=== PATIENT | female | born 1990 | race Caucasian/White ===

== ENCOUNTER → 2017-02-18 | Outpatient (CLI) | payer OTHER ==
[~2017-02-18] MED LIST: ADVIL200 MG PO; ALBUTEROL0.09 MG/A1 IH; ANTIVERT 25MG25 MG PO; ATIVAN 0.50.5 MG/TAB PO; BUSPAR10 MG PO; BUTAL; CIPRO 250MG TA250 MG PO; DESYREL 50MG50 MG PO; EFFEXOR XR75 MG/CAP PO; IBUPROFEN600 MG PO; Iron; LEXAPRO20 MG PO; MOTRIN 600600 MG/TAB PO; NO HOME MEDICATIONS; NORCO 325 MG-51 TAB PO; PENICILLIN V250 MG PO; PERIACTIN 4MG TA4 MG PO; PHENERGAN 25 TA25 MG PO; PRENATAL VITAMI1 TA5 PO; PROVENTIL0.09 MG/A1 IH; SUDAFED 12HR120 MG PO; VICODIN 5/5001 UDTAB PO; VISTARIL 2525 MG/CAP PO; VYVANSE40 MG PO; ZOFRAN 4MG T4 MG/TAB PO; ZYMAR OPHTH SOL5 ML OP
== END ==
LOC: COL.RAD 09:16
DX: R51 Headache (principal)
CPT/HCPCS: Q9967

== ENCOUNTER 2017-02-19 08:35 | Outpatient (CLI) | payer OTHER ==
[~2017-02-19] VITALS: Ht 162.6 cm; Wt 120.3 kg
[2017-02-19] VITALS (10 sets, daily range): BP systolic 96–146; BP diastolic 58–72; PULSE 63–83
[2017-02-19 15:10] LABS: CSF APPEARANCE CLEAR; CSF COLOR COLORLESS
[2017-02-19 18:22] LABS: CEREBROSPINAL TUBE #4
[2017-02-24 08:45] LABS: CSF,IGG 2.4 mg/dL (<=8.1)
[2017-02-24 09:21] LABS: IGG/ALBUMIN SERUM 0.22 (<=0.40)
[2017-02-24 09:34] LABS: ALBUMIN CSF 15.9 mg/dL (<=27.0); CSF IGG/ALBUMIN 0.15 (<=0.21); CSF SYNTHESIS RATE 2.54 mg/24 h (<=12); CSF-IGG INDEX 0.68 (<=0.85)
== END 2017-02-19 14:54 | disposition home or self-care (01) ==
LOC: COL.RAD 08:35
PROVIDERS: Psychiatry & Neurology Neurology
DX: R51 Headache (principal)

== ENCOUNTER 2017-03-13 23:31 | Emergency (ER) | payer OTHER ==
[~2017-03-13] VITALS: Ht 162.6 cm; Wt 118.6 kg
[2017-03-13 23:35] VITALS: TEMP 98.7
[2017-03-14] MEDS ORDERED: ANTIVERT 25MG25 MG PO (00:51)
[2017-03-14 01:02] VITALS: BP 131/74; PULSE 68
== END 2017-03-14 01:02 | disposition home or self-care (01) ==
LOC: COL.ER 23:31
DX: R42 Dizziness and giddiness (principal); R11.0 Nausea; F41.9 Anxiety disorder, unspecified; F32.9 Major depressive disorder, single episode, unspecified; F90.9 Attention-deficit hyperactivity disorder, unspecified type; R25.3 Fasciculation

== ENCOUNTER 2017-03-23 13:38 | Emergency (ER) | payer OTHER ==
[~2017-03-23] VITALS: Ht 162.6 cm; Wt 113.6 kg
[2017-03-23 13:41] VITALS: TEMP 99.2
[2017-03-23 14:53] LABS: ALBUMIN 4.3 gm/dL (3.5-5.0); BILIRUBIN,TOTAL 0.7 mg/dL (0.0-1.0); CALCIUM 9.2 mg/dL (8.4-10.2); CREATININE, serum 0.86 mg/dL (0.52-1.25); TOTAL PROTEIN 7.4 gm/dL (6.4-8.2)
[2017-03-23 15:09] VITALS: BP 117/87; PULSE 85
== END 2017-03-23 15:13 | disposition home or self-care (01) ==
LOC: COL.ER 13:38
PROVIDERS: Emergency Medicine
DX: T67.6XXA Heat fatigue, transient, initial encounter (principal); R51 Headache; R34 Anuria and oliguria; R11.0 Nausea; F41.9 Anxiety disorder, unspecified; F90.9 Attention-deficit hyperactivity disorder, unspecified type
CPT/HCPCS: J1885; J2405; J7030

== ENCOUNTER 2017-05-02 15:13 | Emergency (ER) | payer OTHER ==
[~2017-05-02] VITALS: Ht 162.6 cm; Wt 119.5 kg
[2017-05-02 15:14] VITALS: BP 128/78; PULSE 89; TEMP 98.1
== END 2017-05-02 15:46 | disposition home or self-care (01) ==
LOC: COL.ER 15:13
DX: S80.861A Insect bite (nonvenomous), right lower leg, initial encounter (principal); W57.XXXA Bitten or stung by nonvenomous insect and other nonvenomous arthropods, initial encounter; F90.9 Attention-deficit hyperactivity disorder, unspecified type; F41.9 Anxiety disorder, unspecified; F32.9 Major depressive disorder, single episode, unspecified

== ENCOUNTER 2017-10-14 16:07 | Emergency (ER) | payer SELFPAY ==
[~2017-10-14] VITALS: Ht 160 cm; Wt 118.2 kg
[2017-10-14 16:15] VITALS: TEMP 98.3
[2017-10-14 16:48] LABS: ARTERIAL BLD GAS O2 SATURATION 99.1 % (92-100); ARTERIAL BLD GAS TCO2 CT 22.6; ARTERIAL BLOOD GAS BASE EXCESS -1.5 (-2-2); ARTERIAL BLOOD GAS HCO3 21.6 meq/L (22-26); ARTERIAL BLOOD GAS pH 7.45 (7.35-7.45); OXYHEMOGLOBIN 96.6 %
[2017-10-14 16:49] LABS: ALLEN TEST YES; ALLENS TEST RESULT PASS; ARTERIAL BLOOD GAS PO2 331.7 mmHg (80-100); ATS? YES
[2017-10-14 17:04] LABS: BASO # 0.1 (0.0-0.2); BASO % 0.5 % (0.0-2.0); EOS # 0.3 (0.0-0.7); EOS % 2.5 % (0-4.0); GRAN # 8.2 (1.4-6.5); GRAN % 63.2 % (42.2-75.2); HEMATOCRIT 40.1 % (37.0-47.0); HEMOGLOBIN 13.4 g/dl (12.5-16.0); LYMPH # 3.3 (1.2-3.4); LYMPH % 25.1 % (20.0-51.0); MEAN CELL VOLUME 92 fl (80.0-100.0); MEAN CORPUSCULAR HEMOGLOBIN 31 pg (27.0-31.0); MEAN CORPUSCULAR HGB CONC 33 g/dl (33.0-37.0); MEAN PLATELET VOLUME 10.3 fl (7.4-10.4); MONO # 1.1 (0.1-0.6); MONO % 8.3 % (1.7-9.3); PLATELET COUNT 216 K/mm3 (130-400); RED BLOOD COUNT 4.34 M/mm3 (4.10-5.30)
[2017-10-14 17:14] LABS: ADJUSTED CALCIUM 8.8 mg/dL (8.4-10.2); BILIRUBIN,TOTAL 0.3 mg/dL (0.0-1.0); CALCIUM 8.8 mg/dL (8.4-10.2); CREATININE, serum 0.88 mg/dL (0.52-1.25); POTASSIUM 4.2 mmol/L (3.4-5.0); TOTAL PROTEIN 6.8 gm/dL (6.4-8.2)
[2017-10-14 18:30] VITALS: BP 116/82; PULSE 70
== END 2017-10-14 18:30 | disposition home or self-care (01) ==
LOC: COL.ER 16:07
PROVIDERS: Emergency Medicine
DX: Z77.118 Contact with and (suspected) exposure to other environmental pollution (principal); F41.9 Anxiety disorder, unspecified; F32.9 Major depressive disorder, single episode, unspecified; J45.909 Unspecified asthma, uncomplicated; F17.210 Nicotine dependence, cigarettes, uncomplicated

== ENCOUNTER 2018-06-01 15:23 | Emergency (ER) | payer SELFPAY ==
[~2018-06-01] VITALS: Ht 162.6 cm; Wt 122.7 kg
[2018-06-01 15:25] VITALS: TEMP 98.7
[2018-06-01 16:07] LABS: COLLECTION METHOD CLEAN CATCH
[2018-06-01 16:36] LABS: MUCOUS Present /lpf; PH 5 (5-8); URINE APPEARANCE Clear; URINE BACTERIA None Seen /hpf; URINE BILIRUBIN Negative (NEGATIVE); URINE BLOOD Negative (NEGATIVE); URINE COLOR Yellow; URINE GLUCOSE Negative (NEGATIVE); URINE KETONE Negative (NEGATIVE); URINE LEUKOCYTE ESTERASE Negative (NEGATIVE); URINE NITRATE Negative (NEGATIVE); URINE PROTEIN(semi-quant) Negative (NEGATIVE); URINE RBC 0-2 /hpf; URINE UROBILINOGEN Negative (NEGATIVE)
[2018-06-01 16:47] LABS: BASO # 0.1 (0.0-0.2); BASO % 0.6 % (0.0-2.0); EOS # 0.4 (0.0-0.7); EOS % 2.6 % (0-4.0); GRAN # 9.4 (1.4-6.5); GRAN % 67.6 % (42.2-75.2); HEMATOCRIT 41.1 % (37.0-47.0); HEMOGLOBIN 13.8 g/dl (12.5-16.0); LYMPH # 3.1 (1.2-3.4); LYMPH % 22.1 % (20.0-51.0); MEAN CELL VOLUME 91 fl (80.0-100.0); MEAN CORPUSCULAR HEMOGLOBIN 31 pg (27.0-31.0); MEAN CORPUSCULAR HGB CONC 34 g/dl (33.0-37.0); MEAN PLATELET VOLUME 9.8 fl (7.4-10.4); MONO % 6.9 % (1.7-9.3); PLATELET COUNT 273 K/mm3 (130-400); RED BLOOD COUNT 4.53 M/mm3 (4.10-5.30)
[2018-06-01 16:54] LABS: ALANINE AMINOTRANSFERASE 27 U/L (9-52); ALKALINE PHOSPHATASE 90 U/L (50-136); ANION GAP 8 mmol/L (7-16); AST,SGOT 20 U/L (15-37); BILIRUBIN,TOTAL 0.3 mg/dL (0.0-1.0); BLOOD UREA NITROGEN 14 mg/dL (7-17); CALCIUM 8.9 mg/dL (8.4-10.2); CARBON DIOXIDE 26 mmol/L (22-30); CHLORIDE 104 mmol/L (98-107); CREATININE, serum 0.93 mg/dL (0.52-1.25); GLUCOSE 92 mg/dL (74-106); POTASSIUM 3.8 mmol/L (3.4-5.0); SODIUM 138 mmol/L (137-145)
[2018-06-01 17:10] LABS: HCG,QUANTITATIVE < 2 mIU/mL (0-5)
[2018-06-01 18:14] VITALS: BP 136/87; PULSE 70
== END 2018-06-01 18:12 | disposition home or self-care (01) ==
LOC: COL.ER 15:23
PROVIDERS: Emergency Medicine
DX: R11.0 Nausea (principal); R42 Dizziness and giddiness

== ENCOUNTER 2018-07-12 03:00 | Emergency (ER) | payer SELFPAY ==
[~2018-07-12] VITALS: Ht 160 cm; Wt 121.8 kg
[2018-07-12 03:02] VITALS: BP 128/82; TEMP 98.8
[2018-07-12 03:47] LABS: BASO # 0.1 (0.0-0.2); BASO % 0.6 % (0.0-2.0); EOS # 0.3 (0.0-0.7); EOS % 2.4 % (0-4.0); GRAN # 6.4 (1.4-6.5); GRAN % 59.3 % (42.2-75.2); HEMATOCRIT 39.9 % (37.0-47.0); HEMOGLOBIN 13.2 g/dl (12.5-16.0); LYMPH # 3.1 (1.2-3.4); LYMPH % 28.6 % (20.0-51.0); MEAN CELL VOLUME 91 fl (80.0-100.0); MEAN CORPUSCULAR HEMOGLOBIN 30 pg (27.0-31.0); MEAN CORPUSCULAR HGB CONC 33 g/dl (33.0-37.0); MEAN PLATELET VOLUME 9.9 fl (7.4-10.4); MONO # 0.9 (0.1-0.6); MONO % 8.6 % (1.7-9.3); PLATELET COUNT 267 K/mm3 (130-400); RED BLOOD COUNT 4.37 M/mm3 (4.10-5.30); REDCELL DISTRIBUTION WIDTH-CV 13.1 % (11.5-14.5)
[2018-07-12 03:55] LABS: COLLECTION METHOD CLEAN CATCH
[2018-07-12 03:58] LABS: ALBUMIN 3.8 gm/dL (3.5-5.0); BILIRUBIN,TOTAL 0.2 mg/dL (0.0-1.0); CALCIUM 8.3 mg/dL (8.4-10.2); CREATININE, serum 0.72 mg/dL (0.52-1.25); POTASSIUM 3.9 mmol/L (3.4-5.0); TOTAL PROTEIN 6.7 gm/dL (6.4-8.2)
[2018-07-12 04:02] LABS: MUCOUS Present /lpf; PH 5 (5-8); URINE APPEARANCE Cloudy; URINE BACTERIA Rare /hpf; URINE BILIRUBIN Negative (NEGATIVE); URINE BLOOD Negative (NEGATIVE); URINE COLOR Yellow; URINE GLUCOSE Negative (NEGATIVE); URINE KETONE Negative (NEGATIVE); URINE LEUKOCYTE ESTERASE 3+ (NEGATIVE); URINE NITRATE Negative (NEGATIVE); URINE PROTEIN(semi-quant) Negative (NEGATIVE); URINE UROBILINOGEN Negative (NEGATIVE)
[2018-07-12] MEDS ORDERED: BACTRIM DS 8001 TAB PO (04:15)
[2018-07-12 04:33] VITALS: PULSE 60
== END 2018-07-12 04:40 | disposition home or self-care (01) ==
LOC: COL.ER 03:00
PROVIDERS: Emergency Medicine
DX: N39.0 Urinary tract infection, site not specified (principal); E66.9 Obesity, unspecified; R10.10 Upper abdominal pain, unspecified; F17.210 Nicotine dependence, cigarettes, uncomplicated; Z87.828 Personal history of other (healed) physical injury and trauma

== ENCOUNTER 2018-10-14 18:41 | Emergency (ER) | payer SELFPAY ==
[~2018-10-14] VITALS: Ht 10.2 cm; Wt 118.2 kg
[~2018-10-14 18:41] MED LIST changes: +BACTRIM DS 8001 TAB PO
[2018-10-14 18:42] VITALS: TEMP 97.2
[2018-10-14] MEDS ORDERED: LEVAQUIN 5500 MG/TA1 PO (19:49)
[2018-10-14] MEDS ORDERED: PREDNISONE20 MG PO (19:49)
[2018-10-14 20:13] VITALS: BP 139/85; PULSE 103
== END 2018-10-14 20:16 | disposition home or self-care (01) ==
LOC: COL.ER 18:41
DX: J18.1 Lobar pneumonia, unspecified organism (principal); J45.909 Unspecified asthma, uncomplicated; F17.210 Nicotine dependence, cigarettes, uncomplicated

== ENCOUNTER 2019-02-25 23:13 | Emergency (ER) | payer SELFPAY ==
[~2019-02-25] VITALS: Ht 160 cm; Wt 130.0 kg
[~2019-02-25 23:13] MED LIST changes: +LEVAQUIN 5500 MG/TA1 PO; +PREDNISONE20 MG PO
[2019-02-25 23:16] VITALS: BP 133/83; TEMP 99.2
[2019-02-25] MEDS ORDERED: PROAIR HFA0.09 MG/AC IH (23:19)
[2019-02-26 00:25] VITALS: PULSE 87
== END 2019-02-26 00:25 | disposition home or self-care (01) ==
LOC: COL.ER 23:13
DX: S67.190A Crushing injury of right index finger, initial encounter (principal); Z23 Encounter for immunization; F17.210 Nicotine dependence, cigarettes, uncomplicated; W23.1XXA Caught, crushed, jammed, or pinched between stationary objects, initial encounter

== ENCOUNTER 2019-03-24 16:08 | Emergency (ER) | payer SELFPAY ==
[~2019-03-24] VITALS: Ht 160 cm; Wt 130.0 kg
[~2019-03-24 16:08] MED LIST changes: +PROAIR HFA0.09 MG/AC IH
[2019-03-24 16:11] VITALS: TEMP 98.7
[2019-03-24] MEDS ORDERED: ATIVAN 0.50.5 MG/TAB PO (18:07)
[2019-03-24 18:38] VITALS: BP 120/83; PULSE 91
== END 2019-03-24 18:38 | disposition home or self-care (01) ==
LOC: COL.ER 16:08
DX: F41.0 Panic disorder [episodic paroxysmal anxiety] (principal)

== ENCOUNTER 2019-09-01 17:45 | Emergency (ER) | payer BC ==
[~2019-09-01] VITALS: Ht 160 cm; Wt 120.5 kg
[2019-09-01] MEDS ORDERED: ATIVAN 0.50.5 MG/TAB PO (18:30)
[2019-09-01 19:26] LABS: BASO # 0.1 (0.0-0.2); BASO % 0.5 % (0.0-2.0); EOS # 0.3 (0.0-0.7); EOS % 2.1 % (0-4.0); GRAN # 9.3 (1.4-6.5); GRAN % 66.9 % (42.2-75.2); HEMATOCRIT 43.4 % (37.0-47.0); HEMOGLOBIN 14.2 g/dl (12.5-16.0); LYMPH # 3.2 (1.2-3.4); LYMPH % 23.1 % (20.0-51.0); MEAN CELL VOLUME 95 fl (80.0-100.0); MEAN CORPUSCULAR HEMOGLOBIN 31 pg (27.0-31.0); MEAN CORPUSCULAR HGB CONC 33 g/dl (33.0-37.0); MEAN PLATELET VOLUME 10.6 fl (7.4-10.4); PLATELET COUNT 232 K/mm3 (130-400); RED BLOOD COUNT 4.57 M/mm3 (4.10-5.30); REDCELL DISTRIBUTION WIDTH-CV 13.7 % (11.5-14.5)
[2019-09-01 19:43] LABS: ACETAMINOPHEN < 10 ug/mL (10-30); ALANINE AMINOTRANSFERASE 21 U/L (9-52); ALBUMIN 4.3 gm/dL (3.5-5.0); ALCOHOL(ethanol),MEDICAL < 10 mg/dL; ALKALINE PHOSPHATASE 86 U/L (50-136); ANION GAP 9 mmol/L (7-16); AST,SGOT 22 U/L (15-37); BILIRUBIN,TOTAL 0.3 mg/dL (0.0-1.0); BLOOD UREA NITROGEN 7 mg/dL (7-17); CALCIUM 9.1 mg/dL (8.4-10.2); CARBON DIOXIDE 20 mmol/L (22-30); CHLORIDE 109 mmol/L (98-107); CREATININE, serum 0.82 (0.52-1.25); GLUCOSE 103 mg/dL (74-106); POTASSIUM 3.6 mmol/L (3.4-5.0); SALICYLATE < 1.0 mg/dL; SODIUM 138 mmol/L (137-145); TOTAL PROTEIN 7.3 gm/dL (6.4-8.2)
[2019-09-01 20:15] LABS: COLLECTION METHOD CLEAN CATCH
[2019-09-01 20:26] LABS: MUCOUS Present /lpf; PH 6 (5-8); URINE APPEARANCE Cloudy; URINE BACTERIA Rare /hpf; URINE BILIRUBIN Negative (NEGATIVE); URINE BLOOD Negative (NEGATIVE); URINE COLOR Yellow; URINE GLUCOSE Negative (NEGATIVE); URINE KETONE Negative (NEGATIVE); URINE LEUKOCYTE ESTERASE 3+ (NEGATIVE); URINE NITRATE Negative (NEGATIVE); URINE PROTEIN(semi-quant) Negative (NEGATIVE); URINE UROBILINOGEN Negative (NEGATIVE)
[2019-09-01 20:37] LABS: TRICYCLIC ANTIDEPRESS URINE NEGATIVE
[2019-09-01] MEDS ORDERED: VYVANSE40 MG PO (21:09)
[2019-09-01 22:05] VITALS: BP 135/78; PULSE 92; TEMP 98.2
[2019-09-01] MEDS ORDERED: CEFTIN500 MG PO (22:10)
== END 2019-09-01 22:16 | disposition home or self-care (01) ==
LOC: COL.ER 17:45
PROVIDERS: Emergency Medicine
DX: F41.9 Anxiety disorder, unspecified (principal); N39.0 Urinary tract infection, site not specified; J45.909 Unspecified asthma, uncomplicated

== ENCOUNTER 2020-07-23 07:32 | Emergency (ER) | payer BC ==
[~2020-07-23] VITALS: Ht 160 cm; Wt 133.2 kg
[~2020-07-23 07:32] MED LIST changes: +CEFTIN500 MG PO; +REXULTI2 MG PO
[2020-07-23 07:40] VITALS: TEMP 97.6
[2020-07-23] MEDS ORDERED: CEPHALEXIN500 M1 PO (09:45)
[2020-07-23 10:15] VITALS: BP 112/64; PULSE 72
== END 2020-07-23 10:28 | disposition home or self-care (01) ==
LOC: COL.ER 07:32
DX: S61.011A Laceration without foreign body of right thumb without damage to nail, initial encounter (principal); W25.XXXA Contact with sharp glass, initial encounter; Y93.G1 Activity, food preparation and clean up; Y92.239 Unspecified place in hospital as the place of occurrence of the external cause

== ENCOUNTER 2021-01-26 16:02 | Emergency (ER) | payer SELFPAY ==
[~2021-01-26] VITALS: Ht 160 cm; Wt 127.3 kg
[~2021-01-26 16:02] MED LIST changes: +CEPHALEXIN500 M1 PO
[2021-01-26 16:06] VITALS: TEMP 98
[2021-01-26] MEDS ORDERED: FLEXERIL 1010 MG/TAB PO (18:34)
[2021-01-26 18:42] VITALS: BP 135/72; PULSE 78
== END 2021-01-26 18:42 | disposition home or self-care (01) ==
LOC: COL.ER 16:02
DX: M62.830 Muscle spasm of back (principal); F41.9 Anxiety disorder, unspecified; F32.9 Major depressive disorder, single episode, unspecified; F90.9 Attention-deficit hyperactivity disorder, unspecified type; F43.10 Post-traumatic stress disorder, unspecified; Z87.891 Personal history of nicotine dependence; X50.9XXA Other and unspecified overexertion or strenuous movements or postures, initial encounter
CPT/HCPCS: J1885; J3360

== ENCOUNTER 2021-03-23 12:35 | Emergency (ER) | payer SELFPAY ==
[~2021-03-23] VITALS: Ht 160 cm; Wt 155.5 kg
[~2021-03-23 12:35] MED LIST changes: +FLEXERIL 1010 MG/TAB PO
[2021-03-23] MEDS ORDERED: NORCO 325 MG-51 TAB PO (13:01)
[2021-03-23] MEDS ORDERED: AMOXICILLIN 50500 MG PO (13:01)
[2021-03-23 13:10] VITALS: BP 128/69; PULSE 68; TEMP 97.9
== END 2021-03-23 13:11 | disposition home or self-care (01) ==
LOC: COL.ER 12:35
DX: K02.9 Dental caries, unspecified (principal); F17.210 Nicotine dependence, cigarettes, uncomplicated

== ENCOUNTER 2022-06-17 09:40 | Emergency (ER) | payer BC ==
[~2022-06-17] VITALS: Ht 160 cm; Wt 156.8 kg
[~2022-06-17 09:40] MED LIST changes: +AMOXICILLIN 50500 MG PO
[2022-06-17 09:54] VITALS: TEMP 98
[2022-06-17 10:42] LABS: BASO % 0.3 % (0.0-2.0); EOS # 0.2 K/mm3 (0.0-0.7); EOS % 1.3 % (0.0-4.0); GRAN # 8.7 K/mm3 (1.4-6.5); GRAN % 74.5 % (42.2-75.2); HEMATOCRIT 39.1 % (37.0-47.0); HEMOGLOBIN 12.5 g/dl (12.5-16.0); LYMPH % 17.4 % (20.0-51.0); MEAN CELL VOLUME 89 fl (80.0-100.0); MEAN CORPUSCULAR HEMOGLOBIN 28 pg (27-31); MEAN CORPUSCULAR HGB CONC 32 g/dl (33.0-37.0); MEAN PLATELET VOLUME 9.3 fl (7.4-10.4); MONO # 0.7 K/mm3 (0.1-0.6); MONO % 5.9 % (1.7-9.3); PLATELET COUNT 306 K/mm3 (130-400); RED BLOOD COUNT 4.42 M/mm3 (4.10-5.30); REDCELL DISTRIBUTION WIDTH-CV 13.6 % (11.5-14.5)
[2022-06-17 10:59] LABS: ALBUMIN 3.5 gm/dL (3.5-5.0); BILIRUBIN,TOTAL 0.3 mg/dL (0.2-1.2); C-REACTIVE PROTEIN 1.37 mg/dL (0.00-0.50); CALCIUM 8.8 mg/dL (8.4-10.2); CREATININE, serum 0.74 mg/dL (0.57-1.11); POTASSIUM 3.8 mmol/L (3.5-4.5); TOTAL PROTEIN 6.9 gm/dL (6.2-8.1)
[2022-06-17] MEDS ORDERED: PRIL40 PO (13:04)
[2022-06-17] MEDS ORDERED: NORCO 325 MG-51 TAB PO (13:04)
[2022-06-17 14:03] VITALS: BP 131/79; PULSE 62
== END 2022-06-17 14:03 | disposition home or self-care (01) ==
LOC: COL.ER 09:40
PROVIDERS: Physician Assistant
DX: R10.13 Epigastric pain (principal); R10.11 Right upper quadrant pain; E66.01 Morbid (severe) obesity due to excess calories; Z87.891 Personal history of nicotine dependence; Z32.02 Encounter for pregnancy test, result negative
CPT/HCPCS: J2270; J2405; J3010; J7030; Q9967

== ENCOUNTER 2022-07-14 01:08 | Emergency (ER) | payer BC ==
[~2022-07-14] VITALS: Ht 160 cm; Wt 154.5 kg
[~2022-07-14 01:08] MED LIST changes: +PRIL40 PO
[2022-07-14 01:20] VITALS: TEMP 98.6
[2022-07-14] MEDS ORDERED: ROBAXIN 50500 MG/TAB PO (03:07)
[2022-07-14] MEDS ORDERED: NAPROSYN500 MG PO (03:07)
[2022-07-14] MEDS ORDERED: VALIUM 5MG T5 MG/TAB PO (03:07)
[2022-07-14 03:16] VITALS: BP 138/97; PULSE 75
== END 2022-07-14 03:18 | disposition home or self-care (01) ==
LOC: COL.ER 01:08
DX: M54.50 Low back pain, unspecified (principal); G89.29 Other chronic pain; Z87.891 Personal history of nicotine dependence
CPT/HCPCS: J1885; J3010

== ENCOUNTER → 2023-10-07 | Outpatient (RCR) | payer BC ==
[~2023-10-07] MED LIST changes: +NAPROSYN500 MG PO; +ROBAXIN 50500 MG/TAB PO; +VALIUM 5MG T5 MG/TAB PO
== END | disposition home or self-care (01) ==
LOC: WSPT
DX: M54.50 Low back pain, unspecified (principal); G89.29 Other chronic pain

== ENCOUNTER 2023-10-15 10:30 | Outpatient (RCR) | payer BC ==
[2023-10-20] MEDS ORDERED: AMOXICILLIN 50500 MG PO (00:48)
[2023-10-28] MEDS ORDERED: NORCO 325 MG-51 TAB PO (15:56)
[2023-10-28] MEDS ORDERED: IPRATROPIUM BROM3 M1 IH (15:56)
[2023-10-28] MEDS ORDERED: CHERATUSSIN AC120 ML PO (15:56)
== END 2023-11-07 | disposition home or self-care (01) ==
LOC: WSPT
DX: M54.50 Low back pain, unspecified (principal); G89.29 Other chronic pain

== ENCOUNTER 2024-03-14 17:18 | Emergency (ER) | payer BC ==
[~2024-03-14] VITALS: Ht 160 cm; Wt 164.5 kg
[~2024-03-14 17:18] MED LIST changes: +CHERATUSSIN AC120 ML PO; +IPRATROPIUM BROM3 M1 IH
[2024-03-14 17:27] VITALS: TEMP 98.4
[2024-03-14] MEDS ORDERED: NS 1,000 ML IV ONE (19:00)
[2024-03-14] MEDS ORDERED: Ondansetron 4 MG/2 ML VIAL IV PRN (19:00)
[2024-03-14] MEDS ORDERED: diphenhydrAMINE 50 MG/ML 1 ML VIAL IV ONE (19:00)
[2024-03-14] MEDS ORDERED: Morphine 4 MG/ML VIAL IV PRN (19:00)
[2024-03-14] MEDS ORDERED: methylPREDNISolone Sod Succ 125 MG/2 ML VIAL IV ONE (19:00)
[2024-03-14 19:02] LABS: BASO # 0.1 K/mm3 (0.0-0.2); BASO % 0.6 % (0.0-2.0); EOS # 0.3 K/mm3 (0.0-0.7); EOS % 2.3 % (0.0-4.0); GRAN % 62.4 % (42.2-75.2); HEMATOCRIT 38.6 % (37.0-47.0); HEMOGLOBIN 12.5 g/dl (12.5-16.0); LYMPH % 26.8 % (20.0-51.0); MEAN CELL VOLUME 88 fl (80.0-100.0); MEAN CORPUSCULAR HEMOGLOBIN 29 pg (27-31); MEAN CORPUSCULAR HGB CONC 32 g/dl (33.0-37.0); MEAN PLATELET VOLUME 9.9 fl (7.4-10.4); MONO # 0.9 K/mm3 (0.1-0.6); MONO % 7.5 % (1.7-9.3); PLATELET COUNT 290 K/mm3 (130-400); RED BLOOD COUNT 4.39 M/mm3 (4.10-5.30); REDCELL DISTRIBUTION WIDTH-CV 13.5 % (11.5-14.5)
[2024-03-14 19:20] LABS: ALBUMIN 3.6 g/dL (3.5-5.0); BILIRUBIN,TOTAL 0.1 mg/dL (0.2-1.2); CALCIUM 9.1 mg/dL (8.4-10.2); CREATININE, serum 0.87 mg/dL (0.57-1.11); POTASSIUM 4.2 mEq/L (3.5-4.5); TOTAL PROTEIN 6.9 g/dl (6.2-8.1)
[2024-03-14] MEDS ORDERED: Iohexol 350 - 100 ML VIAL IV ONE (20:34)
[2024-03-14] MEDS ORDERED: NS 50 ML IV ONE (20:38)
[2024-03-14 21:56] VITALS: BP 124/73; PULSE 60
== END 2024-03-14 21:56 | disposition home or self-care (01) ==
LOC: COL.ER 17:18
PROVIDERS: Personal Emergency Response Attendant
DX: R10.12 Left upper quadrant pain (principal); E66.01 Morbid (severe) obesity due to excess calories; Z68.44 Body mass index [BMI] 60.0-69.9, adult
CPT/HCPCS: J1200; J2270; J2405; J2919; J7030; Q9967